=== PATIENT | female | born 1995 ===

== ENCOUNTER 2018-02-08 04:46 | Emergency (ER) | payer SELFPAY ==
[2018-02-08 04:58] VITALS: O2SAT 100
--- NOTE | 2018-02-08 05:14 | C.PDOC ---
History Of Present Illness 22 year old female presents to the ED c/o pain and swelling to her left elbow. Patient states she tripped and fell landing on her left elbow today several hours ago/ . Patient states she is right hand dominant. Patient denies LOC, head injury, weakness, numbness, other injuries, trauma. no numbness or tingling. Time Seen by Provider: 02/08/18 05:05 Chief Complaint (Nursing): Upper Extremity Problem/Injury History Per: Patient History/Exam Limitations: no limitations Onset/Duration Of Symptoms: Hrs Current Symptoms Are (Timing): Still Present Quality: "Pain" Exacerbating Factor(s): Movement Recent travel outside of the [place]: No Additional History Per: Patient Past Medical History Reviewed: Historical Data, Nursing Documentation, Vital Signs Vital Signs: Last Vital Signs Temp 98.5 F 02/08/18 04:54 Pulse 73 02/08/18 04:54 Resp 20 02/08/18 04:54 BP 113/74 02/08/18 04:54 Pulse Ox 100 02/08/18 06:39 - Medical History PMH: No Chronic Diseases Surgical History: No Surg Hx Family History: States: Unknown Family Hx - Social History Hx Alcohol Use: No Hx Substance Use: No Review Of Systems Constitutional: Negative for: Fever, Chills Cardiovascular: Negative for: Chest Pain Respiratory: Negative for: Shortness of Breath Gastrointestinal: Negative for: Nausea, Vomiting Musculoskeletal: Positive for: Arm Pain Skin: Negative for: Rash Neurological: Negative for: Weakness, Numbness Physical Exam - Physical Exam Appears: Non-toxic, Other (very uncomfrotable) Skin: Normal Color, Warm, Dry Head: Atraumatic, Normacephalic Eye(s): bilateral: Normal Inspection Neck: Normal ROM, No Midline Cervical Tenderness, No Paracervical Tenderness, No Step Off Deformity, Supple Cardiovascular: Rhythm Regular, No Murmur Respiratory: Normal Breath Sounds, No Wheezing Extremity: No Normal ROM (left elbow, able to pronate and supinate, unable to fully extend ), Tenderness (left lateral epicondyle), Capillary Refill (< 2 seconds), Swelling (left lateral epicondyle) Extremity: Left: Bony Point Tenderness (lateral epicondylar area), Limited ROM To Joint (elbow), Right: Atraumatic, Normal Color And Temperature, Normal ROM, Bilateral: Hips Non-Tender Pulses: Left Radial: Normal, Right Radial: Normal Neurological/Psych: Oriented x3, Normal Speech, Normal Cognition, Normal Motor, Normal Sensation ED Course And Treatment O2 Sat by Pulse Oximetry: 100 (ON RA) Pulse Ox Interpretation: Normal Orthopedic Time Performed: 06:31 Time Out: Side verified, Site verified, Patient ID confirmed Procedure: Splint Type: Long, Posterior Location: Left, Arm Other:: elbow Consent obtained: Verbal Performed by: Mid-level Provider (done by cp and checked bt wi,) Diagnosis: Fracture Location: Left, Distal Bone: Humerus, Epicondyle, Ulna Capillary refill: Normal Distal Sensation: Normal Distal Motor Function: Normal Capillary Refill: Normal Compartment: Normal Distal Sensation: Normal Distal Motor Function: Normal Post-reduction Radiograph: Good Alignment Patient tolerated procedure: Well Medical Decision Making Medical Decision Making: Plan: * Tylenol 650 mg PO * Left elbow X-Ray discussed with Dr Mike Mijares; requests forearm xray. ct upper ext, posterior splint , npo, pre-op labs. will contact him when ct done. [phone] will s/o to ooncoming team to contact Dr Torrez when ct done. Disposition Discussed With : Robin Torrez - Disposition Disposition Time: 07:05 Condition: STABLE Forms: [facility] [facility] ([place]risian) - Clinical Impression Clinical Impression: Elbow fracture, left - PA / MANAGER INTEGRATION / Resident Statement MD/DO has reviewed & agrees with the documentation as recorded. - Scribe Statement The provider has reviewed the documentation as recorded by the Scribe Braydon Keenan All medical record entries made by the Scribe were at my direction and personally dictated by me. I have reviewed the chart and agree that the record accurately reflects my personal performance of the history, physical exam, medical decision making, and the department course for this patient. I have also personally directed, reviewed, and agree with the discharge instructions and disposition. Physician Patient Turnover Patient Signed Over To: Milagros Johnson Handoff Comments: contacts Dr Mijares with left up ext ct results, f/u pre-op labs , dispo accordingly
[2018-02-08] MEDS ORDERED: Sodium Chloride 0.9% 1,000 ML IV ONE (06:04)
[2018-02-08 07:06] LABS: BASO % 0.3 % (0.0-2.0); EOS % 0.1 % (0.0-4.0); HEMOGLOBIN 11.6 g/dL (11.0-16.0); LYMPH # 1.4 K/uL (1.0-4.3); LYMPH % 10.5 % (20.0-40.0); MEAN CELL VOLUME 85.2 fL (81.0-99.0); MEAN CORPUSCULAR HEMOGLOBIN 27.9 pg (27.0-31.0); MEAN CORPUSCULAR HGB CONC 32.8 g/dL (33.0-37.0); MEAN PLATELET VOLUME 7.9 fL (7.2-11.7); MONO # 0.5 K/uL (0.0-0.8); MONO % 3.3 % (0.0-10.0); NEUT # 11.7 K/uL (1.8-7.0); NEUT % 85.8 % (50.0-75.0); RBC 4.14 Mil/uL (3.80-5.20); RED CELL DISTRIBUTION WIDTH 13.9 % (11.5-14.5); WHITE BLOOD COUNT 13.6 K/uL (4.8-10.8)
[2018-02-08 07:15] VITALS: BP 100/62
[2018-02-08 07:15] LABS: HCG,QUALITATIVE URINE NEGATIVE (NEGATIVE); SQUAMOUS EPITHIAL 1 /hpf (0-5); URINE BACTERIA RARE (<OCC); URINE BILIRUBIN NEGATIVE (NEGATIVE); URINE BLOOD NEGATIVE (NEGATIVE); URINE CLARITY Clear (Clear); URINE COLOR Straw (YELLOW); URINE GLUCOSE (UA) NORMAL (Normal); URINE LEUKOCYTE ESTERASE NEG Leu/uL (Negative); URINE PROTEIN NEGATIVE (NEGATIVE); URINE UROBILINOGEN NORMAL mg/dL (0.2-1.0)
[2018-02-08 07:22] LABS: ALB/GLOB RATIO 1.5 (1.0-2.1); ALBUMIN 4.6 g/dL (3.5-5.0); ALT/SGPT 19 U/L (9-52); AST/SGOT 19 U/L (14-36); BLOOD UREA NITROGEN 13 mg/dL (7-17); CALCIUM 9.3 mg/dl (8.6-10.4); GFR AFRICAN-AMERICAN > 60; GFR NON-AFRICAN AMERICAN > 60
[2018-02-08 07:39] LABS: INR 1.3; PROTHROMBIN TIME 13.8 SECONDS (9.7-12.2)
--- NOTE | 2018-02-08 10:58 | CT ---
Date of service: 02/08/2018 PROCEDURE: Left elbow CT without contrast HISTORY: eval elbow fx COMPARISON: Comparison is made with the previous same-day x-ray of the left elbow and left forearm TECHNIQUE: Axial and reformatted coronal and sagittal CT images of the left elbow were obtained without IV contrast administration. 3D reformatted images were also obtained. Total exam DLP: 122.88 FINDINGS: There are acute comminuted and displaced fracture at the supracondylar left humerus. The fracture is extending into the intercondylar notch and associated with displacement of the medial humeral condyle. The fracture is also extending to the proximal portion of the lateral humeral condyle. There are multiple adjacent bony fragment seen. There is anterior displacement of the left humeral shaft relative to the humeral condyle noted. There is small comminuted fracture at the tip of the olecranon process noted. No evidence of dislocation at the left elbow. No evidence of fracture at the left radial head. There is small to moderate left elbow joint effusion. No evidence of dislocation at the proximal radioulnar joint. Moderate soft tissue swelling and subcutaneous edema seen around the left elbow. IMPRESSION: Acute comminuted distracted fracture at the distal humerus extending from the supracondylar region to the intercondylar notch, trochlea and proximal portion of the lateral humeral condyle and associated with separation and displacement of the medial humeral condyle. No definite evidence of dislocation at the left elbow. Multiple adjacent bony fragments extending to the superior portion of the left elbow joint. Mild anterior displacement of the humeral shaft relative to the humeral condyle. Small comminuted fracture at the tip of the olecranon process.
[2018-02-08 11:04] VITALS: PULSE 64; RESP 18; TEMP 98.4
[2018-02-08] MEDS ORDERED: Oxycodone/Acetaminophen 5/325 mg Tab ONE (11:56)
[2018-02-08] MEDS ORDERED: Oxycodone/Acetaminophen 5/325 mg Tab PO STA ×2 (12:01→12:13)
--- NOTE | 2018-02-08 15:34 | RAD ---
Date of service: 02/08/2018 PROCEDURE: Radiographs of the left elbow. HISTORY: r/o fracture COMPARISON: No prior. FINDINGS: BONES: There is acute comminuted displaced fracture at the distal left humerus involving the supra condyle and extending to the condylar portion. There is mild anterior displacement of the left humeral shaft relative to the humeral condyle noted. JOINTS: Soft tissue swelling and possible joint effusion. SOFT TISSUES: Moderate soft tissue swelling JOINT EFFUSION: Suspicious for small to moderate joint effusion OTHER FINDINGS: None IMPRESSION: Large comminuted and distracted fracture at the distal left humerus extending to the humeral condyle as described.
--- NOTE | 2018-02-08 16:58 | RAD ---
Date of service: 02/08/2018 PROCEDURE: Radiographs of the Left Forearm HISTORY: elbow fx COMPARISON: Correlations made to elbow fracture performed approximately 2.5 hours prior. TECHNIQUE: Frontal and lateral views obtained. FINDINGS: Distal left upper extremity cast is now present, limiting evaluation of fine bony detail. The previously seen comminuted distal humeral fracture Ms. redemonstrated with slightly improved alignment. No other fracture is definitively seen. IMPRESSION: Casted views of the distal humeral fracture.
--- NOTE | 2018-02-09 23:18 | CARD ---
APPROVED REPORT Date of service: 02/08/2018 EKG Measurement Heart [id number] <Conclusion> Sinus rhythm with sinus arrhythmia with short CA Otherwise normal ECG
== END 2018-02-08 12:10 | disposition home or self-care (01) ==
LOC: C.ER 04:46
DX: S42.412A Displaced simple supracondylar fracture without intercondylar fracture of left humerus, initial encounter for closed fracture (principal); W01.0XXA Fall on same level from slipping, tripping and stumbling without subsequent striking against object, initial encounter
CPT/HCPCS: 29105; 73080; 73090; 73200; 80053; 81001; 84703; 85025; 85610; 85730; 86850; 86900; 93005; 99285; J7030